=== PATIENT | male | born 1945 | race Caucasian/White ===

== ENCOUNTER → 2024-06-15 12:47 | Outpatient (CLI) | payer MEDICARE, SELFPAY ==
--- NOTE | 2024-06-15 12:52 | DI.RAD.S_ITS ---
PROCEDURE: FL BARIUM SWALLOW INDICATIONS: PHARYNGEAL DYSPHAGIA COMPARISON: None. FINDINGS: Function: There is normal esophageal peristalsis. No elicited gastroesophageal reflux. There is delayed transit of a calibrated barium tablet through the esophagus into the stomach. Morphology: Air-contrast images demonstrate normal mucosal morphology. Single contrast views show no esophageal strictures, extrinsic mass effects, or diverticula. Limited images of the stomach demonstrate normal appearance. IMPRESSION: Delayed transit of the calibrated barium tablet at the gastroesophageal junction. Dictated by: Brie Mcgowan M.D. on 06/15/2024 at 22:01 Approved by: Brie Mcgowan M.D. on 06/15/2024 at 22:02
== END ==
LOC: RAD 12:50
PROVIDERS: Referring Provider Internal Medicine Gastroenterology; Visit Provider Internal Medicine Gastroenterology
DX: R13.13 Dysphagia, pharyngeal phase (principal)
CPT/HCPCS: 74220